=== PATIENT | male | born 1995 | race Caucasian/White ===

== ENCOUNTER → 2018-02-25 | Outpatient (CLI) | payer BC ==
--- NOTE | 2018-02-25 16:25 | RADIOLOGY IMAGING REPORT ---
FACILITY: [facility] [place] PATIENT NAME: Flo Reese : 1995 MR: [id number] V: [id number] EXAM DATE: ORDERING PHYSICIAN: DANICA MORLEY TECHNOLOGIST: Location: [facility] Patient: Flo Reese : 1995 Visit/Account:[id number] Date of Sevice: 02/25/2018 Exam type: KNEE 3 VIEW RIGHT History: Anterior knee pain, no known injury Comparison: None. Findings: There is no evidence of acute fracture dislocation, significant arthritic change or lytic or blastic bone lesion involving the right knee IMPRESSION: 1. No acute osteoarticular abnormality the right knee is seen. If patient's pain continues MR may b e helpful Report Dictated By: Joanne Juan MD at 02/25/2018 4:19 PM Report E-Signed By: Joanne Juan MD at 02/25/2018 4:20 PM WSN:[email or web address]
== END ==
LOC: RAD 15:13
PROVIDERS: ATTEND Nurse Practitioner Family
DX: M25.561 Pain in right knee (principal)